=== PATIENT | female | born 1965 | race Caucasian/White ===

== ENCOUNTER → 2016-11-04 | Outpatient (CLI) | payer BC ==
--- NOTE | 2016-11-05 07:09 | WWHP ---
DATE OF SERVICE: 11/04/2016 CHIEF COMPLAINT: The patient is here for her routine gynecologic exam and mammogram. HPI: This is a 51-year-old G4, P4 with an LMP of 2014. The patient is status post tubal ligation. She states she has occasional hot flashes, mostly at night and these are not very problematic. She is otherwise without complaints and denies any postmenopausal bleeding. PAST MEDICAL HISTORY: Asthma and gastroesophageal reflux disease. MEDICATIONS: 1. Dulera 2 puffs daily. 2. Omeprazole 40 mg daily. 3. Brittany 1 daily. 4. Singulair 10 mg 1 daily. 5. ProAir inhaler p.r.n. Allergies to AUGMENTIN and NEOMYCIN. PAST SURGICAL HISTORY: section x1, laparoscopic tubal ligation in 2000. PAST ADVANCED SOLUTIONS ARCHITECT HISTORY: She has no history of STDs. SOCIAL HISTORY: She denies tobacco and drug use and has about 4 to 5 alcoholic drinks per week. 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 FAMILY HISTORY: Son has type 1 diabetes, grandfather had colon cancer and mother was diagnosed with breast cancer. REVIEW OF SYSTEMS: She had lost about 60 pounds during her divorce approximately 2 to 3 years ago. She has gained about 35 pounds back. She denies respiratory, cardiac, or GI problems. PHYSICAL EXAM: Blood pressure 126/81. Height 5 feet 2 inches. Weight 152 pounds. Temperature 97.9, pulse 76. This a well-developed, well-nourished white female who is alert and oriented x3 in no acute distress. HEENT is within normal limits. NECK: Supple without mass or thyromegaly. CHEST AND LUNGS: Clear to auscultation. HEART: Regular rate and rhythm. Breasts are without mass or discharge. Axillary exam is negative for adenopathy. BACK: Negative for CVA tenderness. ABDOMEN: Soft, nontender, without palpable masses. PELVIC EXAM: Normal external genitalia. Cervix and vagina reveal mild atrophy without lesions. There is no evidence of prolapse. The uterus is midposition, nongravid size and nontender. There are no palpable adnexal masses or tenderness. Rectovaginal exam is negative for mass or tenderness and is negative for occult blood. EXTREMITIES: Nontender. IMPRESSION: A 51-year-old menopausal female with normal gynecologic exam. PLAN: 1. Pap smear was performed. 2. Self breast examination was discussed. 3. Mammogram will be done today. 4. Osteoporosis prevention was discussed. 5. The patient scheduled for a screening colonoscopy on 11/14/2016. 6. She will return in one year.
--- NOTE | 2016-11-06 10:07 | MM ---
Reason for exam: screening (asymptomatic). Last mammogram was performed 2 years and 6 months ago. History: Patient is postmenopausal. Family history of breast cancer in mother at age 71. Took hormonal contraceptives for 9 years. Physical Findings: A clinical breast exam by your physician is recommended on an annual basis and results should be correlated with mammographic findings. MG 3D Screening Mammo W/Cad Bilateral CC and MLO view(s) were taken. Prior study comparison: April 25, 2014, bilateral MG screening mammo w CAD. April 15, 2013, CAD bilateral diagnostic mammogram. March 24, 2011, bilateral digital screening mammo w/CAD. The breast tissue is heterogeneously dense. This may lower the sensitivity of mammography. No significant changes when compared with prior studies. ASSESSMENT: Negative, BI-RAD 1 RECOMMENDATION: Routine screening mammogram of both breasts in 1 year.
--- NOTE | 2016-11-18 20:57 | WWPLE ---
November 18, 2016 RE: Shyanne, Antonietta Shelia Dear Dr. Puri: I had the pleasure seeing your patient Antnoietta Kimble in the office on 11/04/2016. As you know, she is a 51-year-old female who presented to me for her routine gynecologic exam. Her gynecologic exam was unremarkable. Her Pap smear did show atypical squamous cells of undetermined significance and the high-risk HPV testing was positive. I am recommending colposcopic examination and I will be referring her to someone locally for this. Her mammogram was benign. Thank you for allowing me to participate in the care of your patient. Please do not hesitate to call if you have any questions. Sincerely, Erik Pham M.D. JACK
== END | disposition home or self-care (01) ==
LOC: WWCWWP 15:12
PROVIDERS: ATTEND Obstetrics & Gynecology
DX: Z12.31 Encounter for screening mammogram for malignant neoplasm of breast (principal); Z78.0 Asymptomatic menopausal state; Z80.3 Family history of malignant neoplasm of breast; Z88.8 Allergy status to other drugs, medicaments and biological substances; Z88.6 Allergy status to analgesic agent; Z79.899 Other long term (current) drug therapy
CPT/HCPCS: 77063; G0202

== ENCOUNTER 2016-11-14 08:34 | Day surgery (SDC) | payer BC ==
[2016-11-13 08:13] VITALS: BMI 27.4
[~2016-11-14 08:34] MED LIST: LACTATED RINGERS 1,000 ML IV SCH; LIDOCAINE 1% 20 ML VIAL (10MG/ML) FOR IV START INTRADERMA PRN
[2016-11-14] MEDS ORDERED: LIDOCAINE 1% 20 ML VIAL (10MG/ML) FOR IV START SQ ONE (09:08)
[2016-11-14 09:17] VITALS: RESP 16; TEMP 97.9
[2016-11-14] MEDS ORDERED: PROPOFOL 10 MG/ML 20 ML VIAL IV ONE (09:39)
--- NOTE | 2016-11-14 09:53 | P.PCN ---
Date of Procedure: 11/14/16 Procedure(s) Performed: BRIEF HISTORY: Patient is a 51-year-old pleasant white female, scheduled for an elective colonoscopy as a part of screening for colorectal neoplasia. PROCEDURE PERFORMED: Colonoscopy. PREOPERATIVE DIAGNOSIS: Screening for colon cancer. IV sedation per Anesthesia. PROCEDURE: After informed consent was obtained, the patient, was brought into the endoscopy unit. IV conscious sedation was administered by Anesthesia under continuous monitoring. Digital rectal examination was normal. Initially the Olympus CF-160 flexible video colonoscope was then inserted in the rectum, gradually advanced into the cecum without any difficulty. Careful examination was performed as the scope was gradually being withdrawn. Ileocecal valve and the appendiceal orifice were visualized and appeared normal. Prep was excellent. Mucosa of the cecum, ascending colon, transverse colon, descending colon, sigmoid colon, and rectum appeared normal. Retroflexion was performed in the rectum and no lesions were seen. Scattered sigmoid diverticulosis seen. The patient tolerated the procedure well. IMPRESSION: Normal-appearing colon from rectum to cecum with no evidence of colorectal neoplasia. Scattered sigmoid diverticulosis. RECOMMENDATIONS: Findings of this examination were discussed with the patient as well as a family. She was advised to have a repeat screening colonoscopy in 10 years.
[2016-11-14 10:20] VITALS: BP 133/85; PULSE 65
== END 2016-11-14 10:38 | disposition home or self-care (01) ==
LOC: ORWHC2ENDO 08:34
PROVIDERS: ATTEND Internal Medicine Gastroenterology
DX: Z12.11 Encounter for screening for malignant neoplasm of colon (principal); K57.30 Diverticulosis of large intestine without perforation or abscess without bleeding; J45.909 Unspecified asthma, uncomplicated; K21.9 Gastro-esophageal reflux disease without esophagitis; Z88.1 Allergy status to other antibiotic agents; Z79.51 Long term (current) use of inhaled steroids; Z79.899 Other long term (current) drug therapy
CPT/HCPCS: 81025; J2704; G0121

== ENCOUNTER → 2017-12-15 | Outpatient (CLI) | payer BC ==
[2017-12-15 15:38] VITALS: PULSE 89; BMI 28.9
--- NOTE | 2017-12-15 16:38 | P.HPOB ---
History of Present Illness H&P Date: 12/15/17 Chief Complaint: The patient is here for her routine gynecologic exam and mammogram. This is a 52-year-old with an LMP of 2013. The patient status post tubal sterilization. She is without gynecologic complaints and denies any postmenopausal bleeding. She did have an abnormal Pap smear showing ascus with positive high-risk HPV testing on 11/04/2016. 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 Review of Systems The patient has gained 6 pounds over the last year. She denies respiratory, cardiac, or G.I. problems. Her asthma symptoms have improved after moving and after her job location has changed. Past Medical History Past Medical History: Asthma, GERD/Reflux Additional Past Medical History / Comment(s): HPV,Cystic breasts,mammo 12/15/17 History of Any Multi-Drug Resistant Organisms: None Reported Past Surgical History: Section, Tubal Ligation Past Psychological History: No Psychological Hx Reported Smoking Status: Never smoker Past Alcohol Use History: Occasional (About 4 glasses of wine per week.) Past Drug Use History: None Reported - Past Family History Mother Family Medical History: Cancer (Breast cancer.) Additional Family Medical History / Comment(s): right breast Son(s) Family Medical History: Diabetes Mellitus (Type I.) Additional Family Medical History / Comment(s): Grandfather had colon cancer. Medications and Allergies Home Medications Medication Instructions Recorded Confirmed Type Albuterol Sulfate [Proventil Hfa] 1 - 2 puff INHALATION AC-BID PRN 11/13/16 History Fexofenadine HCl [Brittany Allergy] 180 mg PO DAILY 11/13/16 12/15/17 History Omeprazole [Omeprazole] 20 mg PO DAILY 11/13/16 12/15/17 History Allergies Allergy/AdvReac Type Severity Reaction Status Date / Time neomycin Allergy Rash/Hives Verified 12/15/17 15:43 nickel Allergy Rash/Hives Verified 12/15/17 15:43 amoxicillin [From Augmentin] AdvReac Nausea & Verified 12/15/17 15:43 Vomiting & Diarrhea clavulanic acid AdvReac Nausea & Verified 12/15/17 15:43 [From Augmentin] Vomiting & Diarrhea Exam - Vital Signs Vital signs: Vital Signs Pulse 12/15/17 15:31 89 Intake and Output 12/15/17 12/15/17 12/15/17 06:59 14:59 22:59 Other: Weight 71.668 kg Height 5'2" BMI 29, temperature 97.9 , repeat blood pressure 128/80. This is a well-developed well-nourished white female who is alert and oriented times 3 in no acute distress. HEENT: Within normal limits. NECK: Supple without mass or thyromegaly. CHEST AND LUNGS: Clear to auscultation. HEART: Regular rate and rhythm. BREASTS: Are without mass or discharge. AXILLARY EXAM: Negative for adenopathy. BACK: Negative for CVA tenderness. ABDOMEN: Soft, nontender, without palpable masses. PELVIC EXAM: Normal external genitalia with minimal atrophy. Cervix and vagina appear normal with minimal atrophy. There is no unusual discharge. There is no evidence of prolapse. The uterus is midposition, nongravid size and nontender. There are no palpable adnexal masses or tenderness. RECTAL EXAM: recto vaginal exam is negative for mass or tenderness and is negative for occult blood. EXTREMITIES: Nontender. IMPRESSION: 1. 52-year-old menopausal female with normal gynecologic exam. 2. History of ascus Pap smear with positive high risk HPV 11/04/2016. Colposcopic biopsy revealed low-grade MIKEL. 3. Elevated blood pressure an initial check. PLAN: 1. Pap smear was performed. 2. Self breast examination was discussed. 3. Screening mammogram will be done today. 4. We have discussed her initially elevated blood pressure. I have recommended that she check your blood pressure at home on a regular basis and follow-up with Dr. Puri regarding blood pressure elevations. 5. She will return in one year.
--- NOTE | 2017-12-17 07:05 | MM ---
Reason for exam: screening (asymptomatic). Last mammogram was performed 1 year and 1 month ago. History: Patient is postmenopausal. Family history of breast cancer in mother at age 71. Took hormonal contraceptives for 9 years. Physical Findings: A clinical breast exam by your physician is recommended on an annual basis and results should be correlated with mammographic findings. MG 3D Screening Mammo W/Cad Bilateral CC and MLO view(s) were taken. Prior study comparison: November 04, 2016, bilateral MG 3d screening mammo w/cad. April 25, 2014, bilateral MG screening mammo w CAD. The breast tissue is heterogeneously dense. This may lower the sensitivity of mammography. No suspicious abnormality. ASSESSMENT: Negative, BI-RAD 1 RECOMMENDATION: Routine screening mammogram of both breasts in 1 year.
== END | disposition home or self-care (01) ==
LOC: WWCWWP 15:24
PROVIDERS: ATTEND Obstetrics & Gynecology
DX: Z12.31 Encounter for screening mammogram for malignant neoplasm of breast (principal)
CPT/HCPCS: 77063; 77067

== ENCOUNTER → 2019-07-12 | Outpatient (CLI) | payer BC ==
[2019-07-12 16:27] VITALS: BP 146/92; PULSE 63; RESP 18; TEMP 98; BMI 28.7
--- NOTE | 2019-07-12 17:18 | P.HPOB ---
History of Present Illness H&P Date: 07/12/19 Chief Complaint: The patient is here for her routine gynecologic exam and ma mmogram. This is a 54-year-old with an LMP of 2014. The patient is without gynecologic complaints and denies any postmenopausal bleeding. She has a history of an abnormal Pap smear on 11/04/2016 which showed ASCUS with positive high-risk HPV testing. Colposcopic examination in 2017 showed low-grade MIKEL. Cervical cytology on 12/15/2017 was negative. Review of Systems She states she has lost about 20 pounds intentionally over the past 3 months with diet and exercise. She denies respiratory, cardiac, or GI problems. 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 She has no other history of STDs. History of Any Multi-Drug Resistant Organisms: None Reported Past Surgical History: Section, Tubal Ligation Past Psychological History: No Psychological Hx Reported Smoking Status: Never smoker Past Alcohol Use History: Occasional (3 per week) Past Drug Use History: None Reported Additional History: She has been since 2015 and this is her second marriage. 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 - Past Family History Mother Family Medical History: Cancer Additional Family Medical History / Comment(s): Breast cancer. Son(s) Family Medical History: Diabetes Mellitus Medications and Allergies Home Medications Medication Instructions Recorded Confirmed Type No Known Home Medications 07/12/19 07/12/19 History Allergies Allergy/AdvReac Type Severity Reaction Status Date / Time neomycin Allergy Rash/Hives Verified 07/12/19 16:27 nickel Allergy Rash/Hives Verified 07/12/19 16:27 amoxicillin [From Augmentin] AdvReac Nausea & Verified 07/12/19 16:27 Vomiting & Diarrhea clavulanic acid AdvReac Nausea & Verified 07/12/19 16:27 [From Augmentin] Vomiting & Diarrhea Exam Vital Signs Temp Pulse Resp BP Pulse Ox 07/12/19 16:19 98.0 F 63 18 146/92 99 Intake and Output 07/12/19 07/12/19 07/12/19 06:59 14:59 22:59 Other: Weight 71.214 kg Height 5 feet 2 inches, weight 157 pounds, BMI 28.7. This is a well-developed well-nourished white female who is alert and oriented times 3 in no acute distress. HEENT: Within normal limits. NECK: Supple without mass or thyromegaly. CHEST AND LUNGS: Clear to auscultation. HEART: Regular rate and rhythm. BREASTS: Are without mass or discharge. AXILLARY EXAM: Negative for adenopathy. BACK: Negative for CVA tenderness. ABDOMEN: Soft, nontender, without palpable masses. PELVIC EXAM: Normal external genitalia with minimal atrophy. Cervix and vagina appear normal with minimal atrophy. There is no unusual discharge. There is no evidence of prolapse. The uterus is anterior, retroverted, nongravid size and nontender. There are no palpable adnexal masses or tenderness. RECTAL EXAM: Rectovaginal exam is negative for mass or tenderness and is negative for occult blood. EXTREMITIES: Nontender. IMPRESSION: 1. 54-year-old menopausal female with normal gynecologic exam. 2. History of low-grade MIKEL by colposcopic biopsy following an ASCUS Pap smear with positive high risk HPV testing on 11/04/2016. Last Pap smear on 12/15/2017 was negative(cytology only). PLAN: 1. Pap smear with high-risk HPV testing (cotest) was done today. If this testing is both negative we will resume regular cervical screening. 2. Self breast awareness was discussed with the patient. 3. Screening mammogram will be done today. 4. Osteoporosis prevention was discussed. I have stressed the importance of adequate calcium, vitamin D and regular exercise. Recommended amounts of calcium and vitamin D were also discussed. 5. She was advised to return in one year for her annual well woman exam.
--- NOTE | 2019-07-14 08:36 | MM ---
Reason for exam: screening (asymptomatic). Last mammogram was performed 1 year and 7 months ago. History: Patient is postmenopausal. Family history of breast cancer in mother at age 71. Took hormonal contraceptives for 9 years. Physical Findings: A clinical breast exam by your physician is recommended on an annual basis and results should be correlated with mammographic findings. MG 3D Screening Mammo W/Cad Bilateral CC and MLO view(s) were taken. Prior study comparison: December 15, 2017, bilateral MG 3d screening mammo w/cad. November 04, 2016, bilateral MG 3d screening mammo w/cad. The breast tissue is heterogeneously dense. This may lower the sensitivity of mammography. No significant changes when compared with prior studies. ASSESSMENT: Benign, BI-RAD 2 RECOMMENDATION: Routine screening mammogram of both breasts in 1 year.
== END | disposition home or self-care (01) ==
LOC: WWCWWP 16:00
PROVIDERS: ATTEND Obstetrics & Gynecology
DX: Z12.31 Encounter for screening mammogram for malignant neoplasm of breast (principal)
CPT/HCPCS: 77063; 77067

== ENCOUNTER → 2020-07-25 | Outpatient (CLI) | payer BC ==
[2020-07-25 11:43] VITALS: BP 145/89; PULSE 61; RESP 18; TEMP 98.4
--- NOTE | 2020-07-25 13:40 | P.HPOB ---
History of Present Illness H&P Date: 07/25/20 Chief Complaint: The patient is here for her routine gynecologic exam and ma mmogram. This was a 55-year-old with an LMP of 2014. The patient is without gynecologic complaints. Nicely postmenopausal bleeding. She has a history of abnormal Pap smears including a Pap smear on 11/04/2016 showing ASCUS with positive high-risk HPV testing. Colposcopic examination in 2017 showed low- grade MIKEL. Repeat Pap smear on 07/12/2019 showed low-grade MIKEL with positive high-risk HPV testing. Colposcopic examination by Dr. Rogers again showed low-grade MIKEL. The patient is complaining of areas of pruritus and rash in the area of the anterior chest and superior to the breast, the low abdomen, and left groin and thigh area. She has tried is using different laundry detergents and fabric softeners without any success. She has tried a prescription steroid ointment in the right chest area above the breast and this has helped somewhat. Review of Systems She has gained about 15 pounds over the past year. She states she had lost around 30 pounds prior to the Covid pandemic. During the Covid pandemic, she states she has been baking more sweets and has gained weight because of this. She denies respiratory, cardiac, or GI problems. Skin: As above. 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 She has no other history of STDs. History of Any Multi-Drug Resistant Organisms: None Reported Past Surgical History: Section, Tubal Ligation Past Psychological History: No Psychological Hx Reported Smoking Status: Never smoker Past Alcohol Use History: Occasional Past Drug Use History: None Reported Additional History: She has been since 2015 and this is her second marriage. 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 - Past Family History Mother Family Medical History: Cancer Additional Family Medical History / Comment(s): Breast cancer. Son(s) Family Medical History: Diabetes Mellitus Medications and Allergies Home Medications Medication Instructions Recorded Confirmed Type Bifidobacterium Infantis [Align] 4 mg PO DAILY 07/25/20 07/25/20 History Calcium Carbonate [Calcium] 600 mg PO DAILY 07/25/20 07/25/20 History Fexofenadine HCl [Brittany Allergy] 180 mg PO HS 07/25/20 07/25/20 History Magnesium 400 mg PO DAILY 07/25/20 07/25/20 History Multivit/Folic Acid/Vit K1 1 each PO DAILY 07/25/20 07/25/20 History [One-A-Day Women's 50 Plus Tab] Triamcinolone 0.1% Cream [Kenalog 1 applicatio TOPICAL BID PRN #80 07/25/20 Rx 0.1% Cream] gram Allergies Allergy/AdvReac Type Severity Reaction Status Date / Time neomycin Allergy Rash/Hives Verified 07/25/20 11:14 nickel Allergy Rash/Hives Verified 07/25/20 11:14 amoxicillin [From Augmentin] AdvReac Nausea & Verified 07/25/20 11:14 Vomiting & Diarrhea clavulanic acid AdvReac Nausea & Verified 07/25/20 11:14 [From Augmentin] Vomiting & Diarrhea Exam Vital Signs Temp Pulse Resp BP Pulse Ox 07/25/20 11:42 98.4 F 61 18 145/89 100 Height 5 feet 1-1/2 inches, weight 172 pounds, BMI 32. This is a well-developed well-nourished white female who is alert and oriented times 3 in no acute distress. HEENT: Within normal limits. NECK: Supple without mass or thyromegaly. CHEST AND LUNGS: Clear to auscultation. There is a maculopapular rash with mild erythema on the skin superior to the right breast. HEART: Regular rate and rhythm. BREASTS: Are without mass or discharge. AXILLARY EXAM: Negative for adenopathy. BACK: Negative for CVA tenderness. ABDOMEN: Soft, nontender, without palpable masses. There is a maculopapular rash with mild erythema on the skin of the low abdomen PELVIC EXAM: Normal external genitalia with mild atrophy. Cervix and vagina appear normal with mild atrophy. There is no unusual discharge. There is no evidence of prolapse. The uterus is midposition, nongravid size and nontender. There are no palpable adnexal masses or tenderness. RECTAL EXAM: Rectovaginal exam is negative for mass or tenderness and is negative for occult blood. EXTREMITIES: Nontender. There is a maculopapular rash with mild erythema on the skin in the area of the left groin and upper thigh area. IMPRESSION: 1. If the 5-year-old menopausal female with normal gynecologic exam. 2. Previous low-grade MIKEL Pap smear with positive high-risk HPV testing one year ago. Follow-up colposcopic examination also revealed low-grade changes. 3. Elevated blood pressure. 4. Contact dermatitis in the right upper chest, lower abdomen, and left groin and thigh area. PLAN: 1. Pap smear with high-risk HPV testing was obtained. Consider referral for colposcopic examination if abnormal cytology or persistent high-risk HPV. 2. Self breast awareness was discussed with the patient. 3. Screening mammogram will be done today. 4. Kenalog 0.1% cream twice a day to the areas of contact dermatitis. I have also recommended that she try to avoid over wash with soap and also to avoid scratching or rubbing these areas. The electronic prescription was sent to [facility] in [place]. After 1-2 weeks, if this rash does not improve, I have recommended that she see a video recorder mechanic for this. 5. Osteoporosis prevention was discussed. I have stressed the importance of adequate calcium, vitamin D and regular exercise. Recommended amounts of calcium and vitamin D were also discussed. 6. We have discussed her elevated blood pressure. I recommended that she try to lose weight and we have stressed the importance of good nutrition, adequate fiber, regular meals and regular exercise. She is currently trying to use the weight watcher system to lose weight. I also recommended that she check her own blood pressure on a regular basis since she does have a blood pressure cuff at home. She will follow up with her PCP for blood pressure elevations. 7. She was advised to return in one year for her annual well woman exam.
--- NOTE | 2020-07-27 11:03 | MM ---
Reason for exam: screening (asymptomatic). Last mammogram was performed 1 year ago. History: Patient is postmenopausal. Family history of breast cancer in mother at age 71. Took hormonal contraceptives for 9 years. Physical Findings: A clinical breast exam by your physician is recommended on an annual basis and results should be correlated with mammographic findings. MG 3D Screening Mammo W/Cad Bilateral CC and MLO view(s) were taken. Prior study comparison: July 12, 2019, bilateral MG 3d screening mammo w/cad. December 15, 2017, bilateral MG 3d screening mammo w/cad. The breast tissue is heterogeneously dense. This may lower the sensitivity of mammography. No significant changes when compared with prior studies. ASSESSMENT: Negative, BI-RAD 1 RECOMMENDATION: Routine screening mammogram of both breasts in 1 year.
--- NOTE | 2020-08-07 09:22 | P.PN ---
Progress Note - Text Progress Note Date: 08/07/20 OUTPATIENT FOLLOW-UP NOTE TEST(S)/RESULTS: Test results from 07/25/2020 include Pap smear showing ASCUS with positive high-risk HPV testing (-16, -18). There is a shift in the vaginal sai suggestive of bacterial vaginosis. METHOD OF NOTIFICATION: The patient was notified by phone. PATIENT COMMENTS: The patient denies vaginal discharge or vaginal odor. She has had some pruritus on various parts of her body but not directly in the genital area. DIAGNOSIS: ASCUS Pap smear with positive high-risk HPV testing. No BV symptoms at this time. DISCUSSION: Her history includes colposcopic examination in 2017 showing low- grade MIKEL after an ASCUS Pap smear with positive high risk HPV testing. 12/15/2017 Pap smear was negative. She had an abnormal Pap smear on 07/12/2019 showing low-grade MIKEL with positive high-risk HPV testing(-16,-18) and had another colposcopy done by Dr. Rogers showing CARLOTA-1. The Pap smear and HPV testing done on 07/25/2020 was the first testing done after her colposcopy done 1 year ago. PLAN: Based on the ASCCP risk based consensus guidelines, her immediate risk for CIN3+ is less than 4% and the 5 year risk is 6%. One-year follow-up is recommended and at that time we'll plan on repeating the Pap smear cytology and high-risk HPV testing. She was also instructed to call if she develops any bacterial vaginosis symptoms.
== END | disposition home or self-care (01) ==
LOC: WWCWWP 11:06
PROVIDERS: ATTEND Obstetrics & Gynecology
DX: Z12.31 Encounter for screening mammogram for malignant neoplasm of breast (principal)
CPT/HCPCS: 77063; 77067

== ENCOUNTER → 2021-09-17 | Outpatient (CLI) | payer BC ==
[2021-09-17 09:31] VITALS: BP 161/98; PULSE 83; RESP 18; TEMP 98.2
--- NOTE | 2021-09-17 10:17 | P.HPOB ---
History of Present Illness H&P Date: 09/17/21 Chief Complaint: The patient is here for her routine gynecologic exam and ma mmogram. This is a 56-year-old with an LMP of 2014. The patient is without gynecologic complaints and denies any postmenopausal bleeding. She is very nervous about her Pap smear testing. She has had a colposcopic examination in 2017 and again in 2019 and both showed low-grade MIKEL. Pap smear in 2019 showed ASCUS with positive high-risk HPV testing (-16, -18). ASCCP guidelines recommended follow-up testing in 12 months. Review of Systems The patient has gained 20 pounds over the last year. She denies respiratory, cardiac, or G.I. problems. Past Medical History Past Medical History: Asthma, GERD/Reflux Additional Past Medical History / Comment(s): Seasonal ALLERGIES. 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 She has no other history of STDs. History of Any Multi-Drug Resistant Organisms: None Reported Past Surgical History: Section, Tubal Ligation Past Psychological History: No Psychological Hx Reported Smoking Status: Never smoker Past Alcohol Use History: Occasional (About 4 per week) Past Drug Use History: None Reported Additional History: She has been since 2015 and this is her second marriage. 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 - Past Family History Mother Family Medical History: Cancer Additional Family Medical History / Comment(s): Breast cancer. Son(s) Family Medical History: Diabetes Mellitus Medications and Allergies Home Medications Medication Instructions Recorded Confirmed Type Fexofenadine HCl [Brittany Allergy] 180 mg PO HS 07/25/20 09/17/21 History Multivit/Folic Acid/Vit K1 1 each PO DAILY 07/25/20 09/17/21 History [One-A-Day Women's 50 Plus Tab] L.acidoph,Paracasei, B.lactis 1 each PO DAILY 09/17/21 09/17/21 History [Probiotic] Omeprazole 20 mg PO DAILY 09/17/21 09/17/21 History Allergies Allergy/AdvReac Type Severity Reaction Status Date / Time neomycin Allergy Rash/Hives Verified 09/17/21 09:20 nickel Allergy Rash/Hives Verified 09/17/21 09:20 amoxicillin [From Augmentin] AdvReac Nausea & Verified 09/17/21 09:20 Vomiting & Diarrhea clavulanic acid AdvReac Nausea & Verified 09/17/21 09:20 [From Augmentin] Vomiting & Diarrhea Exam Vital Signs Temp Pulse Resp BP Pulse Ox 09/17/21 09:23 98.2 F 83 18 161/98 99 Intake and Output 09/16/21 09/17/21 09/17/21 22:59 06:59 14:59 Other: Weight 87.09 kg Height 5 feet 1-1/2 inches, weight 192 pounds, BMI 35.7. This is a well-developed well-nourished white female who is alert and oriented times 3 in no acute distress. HEENT: Within normal limits. NECK: Supple without mass or thyromegaly. CHEST AND LUNGS: Clear to auscultation. HEART: Regular rate and rhythm. BREASTS: Are without mass or discharge. AXILLARY EXAM: Negative for adenopathy. BACK: Negative for CVA tenderness. ABDOMEN: Soft, nontender, without palpable masses. PELVIC EXAM: Normal external genitalia with mild atrophy. Cervix and vagina appear normal with mild atrophy. The cervix is slightly stenotic secondary to atrophy. There is no unusual discharge. There is no evidence of prolapse. The uterus is midposition, nongravid size and nontender. There are no palpable adnexal masses or tenderness. RECTAL EXAM: Rectovaginal exam is negative for mass or tenderness and is negative for occult blood. EXTREMITIES: Nontender. IMPRESSION: 1. 56-year-old menopausal female with normal gynecologic exam. 2. Previous abnormal Pap smears showing low-grade MIKEL in 2019 with a colposcopic examination at that time showing low-grade MIKEL. Her most recent Pap smear on 07/25/2020 showed ASCUS with positive high-risk HPV testing. 3. Elevated blood pressure. PLAN: 1. Pap smear cotest was performed. 2. Self breast awareness was discussed with the patient. We have also discussed symptoms associated with inflammatory breast cancer. 3. Screening mammogram will be done today. 4. Her elevated blood pressure was discussed. I have recommended that she check her own blood pressures at home on a regular basis and follow up with her PCP for blood pressure elevations. We have also discussed the importance of good nutrition, regular exercise and weight loss. She plans to return to [employer] to help with her weight control. 5. Osteoporosis prevention was discussed. I have stressed the importance of adequate calcium, vitamin D and regular exercise. Recommended amounts of calcium and vitamin D were also discussed. 6. She has completed her Covid vaccination series and has received a booster as well. 7. She was advised to return in one year for her annual well woman exam.
--- NOTE | 2021-09-18 13:59 | MM ---
Reason for exam: screening (asymptomatic). Last mammogram was performed 1 year and 2 months ago. History: Patient is postmenopausal. Family history of breast cancer in mother at age 71. Took hormonal contraceptives for 9 years. Physical Findings: A clinical breast exam by your physician is recommended on an annual basis and results should be correlated with mammographic findings. MG 3D Screening Mammo W/Cad Bilateral CC and MLO view(s) were taken. Prior study comparison: July 25, 2020, bilateral MG 3d screening mammo w/cad. July 12, 2019, bilateral MG 3d screening mammo w/cad. The breast tissue is heterogeneously dense. This may lower the sensitivity of mammography. There is chronic nodularity in the left breast, stable. No significant changes when compared with prior studies. ASSESSMENT: Benign, BI-RAD 2 RECOMMENDATION: Routine screening mammogram of both breasts in 1 year.
== END ==
LOC: WWCWWP 09:04
PROVIDERS: ATTEND Obstetrics & Gynecology
DX: Z12.31 Encounter for screening mammogram for malignant neoplasm of breast (principal); A63.0 Anogenital (venereal) warts; R03.0 Elevated blood-pressure reading, without diagnosis of hypertension; J45.909 Unspecified asthma, uncomplicated; K21.9 Gastro-esophageal reflux disease without esophagitis; Z88.1 Allergy status to other antibiotic agents; Z91.09 Other allergy status, other than to drugs and biological substances
CPT/HCPCS: 77063; 77067